=== PATIENT | female | born 1965 | race Caucasian/White ===

== ENCOUNTER → 2018-05-19 | Outpatient (CLI) | payer MEDICARE ==
[~2018-05-19] MED LIST: CITALOPRAM HBR20 MG PO; FOLIC ACID1 MG PO; HYDROXYZINE HCL25 MG PO; HYOSCYAMINE0.125 MG PO; LISINOPRIL10 MG PO; LORAZEPAM0.5 MG PO; METHADONE; NEXIUM40 MG; NYSTATIN SUSPENSION; PLAQUENIL200 MG PO; RITALIN10 MG PO; TRAZODONE HCL50 MG PO; [UNRECOGNIZED DRUG - OTHER]; [UNRECOGNIZED DRUG - OTHER]
--- NOTE | 2018-05-19 20:25 | Diagnostic Imaging Report ---
History: Concussion Comparison studies: None Technique: Axial images were obtained from the skull base to the vertex. Coronal and sagittal reconstructions obtained from the axial data. Dose modulation, iterative reconstruction, and/or weight based adjustment of the mA/kV was utilized to reduce the radiation dose to as low as reasonably achievable. Findings: Scalp/skull: No abnormalities. No fractures, blastic or lytic lesions. Extra-axial spaces: No masses. No fluid collections. Brain sulci: Appropriate for age. Ventricles: Normal in size and configuration. No hydrocephalus. Parenchyma: Focal cortical based hypodensity with associated volume loss of the left posterior cerebellum. No masses, hemorrhage or acute cortical vascular insults. Sellar/suprasellar region: No abnormalities Craniocervical junction: Patent foramen magnum. No Chiari one malformation. Mild atherosclerotic calcifications of the carotid siphons and left vertebral artery. IMPRESSION: No acute abnormalities. Small left posterior cerebellar remote insult . Signed by: DR Isma Brewer M.D. on 05/19/2018 8:22 PM
== END ==
LOC: CT 17:59
PROVIDERS: ATTEND Family Medicine
DX: S06.0X1A Concussion with loss of consciousness of 30 minutes or less, initial encounter (principal)
CPT/HCPCS: 70450

== ENCOUNTER → 2018-12-02 | Day surgery (SDC) | payer MEDICARE ==
[~2018-12-02] MED LIST changes: +ABILIFY5 MG PO; +ACTEMRA80 MG/4 ML SQ; +ALLEGRA OTC PO; +ARICEPT5 MG PO; +ASPIR 8181 MG PO; +BACLOFEN10 MG PO; +FENTANYL CITRATE/PF 100MCG/2 ML INJ ONE; +GABAPENTIN400 MG PO; +GLUCAGON FOR INJ 1 MG VIAL ONE; +GLYCOPYRROLATE INJ 1MG/ 5 ML SYR ONE; +HYDROCODON-ACE1 EAC9 PO; +MELOXICAM15 MG PO; +MIDAZOLAM HCL 2 MG/2 ML VIAL ONE; +MORPHINE SULFAT15 M1 PO; -NEXIUM40 MG; +NEXIUM40 MG PO; +PROPOFOL IV EMULSION 10 MG/ML 50 ML VIAL ONE; +SULFASALAZINE500 MG PO; +TRINTELLIX PO; +V-R WOMEN'S CO1 EACH PO
--- OUTSIDE RECORDS SUMMARY | 2018-12-02 07:05 | XMS REPORT ---
Author Author [facility] Address Unknown Phone Unavailable Support Name Relationship Address Phone NONE, OTHER [address]S [phone] [place], [place] [phone] NOTHER, OTHER PRS [phone] [place], [place] [address] JUDIT FARFAN [place]S [phone] [place], [place] [phone] Care Team Providers Care Coding Manager Name Role Phone Maria D KRISHNAN Unavailable Unavailable Payers Payer Name Policy Type Policy Number Effective Date Expiration Date Problems This patient has no known problems. Allergies, Adverse Reactions, Alerts Allergy Name Allergy Type Status Severity Reaction(s) Onset Date Inactive Date Treating Clinician Comments doxycycline DA Active U 2018-05-07 00:00:00 levofloxacin DA Active U 2018-05-07 00:00:00 Medications This patient has no known medications. Encounters Start Date/Time End Date/Time Encounter Type Admission Type Attending Clinicians Care Facility Care Department Encounter ID 2018-09-17 08:39:00 2018-09-17 08:39:00 Outpatient [facility] [id number] Results Test Description Test Time Test Comments Text Results Atomic Results Result Comments CT BRAIN WO 2018-05-19 20:19:00 [facility] [address] [place] [address] Patient Name: PÉREZ FARFAN MR #: [id number] : 1965 Age/Sex: 52/F Req #: [id number] Adm Physician: Ordered by: SARI KRISHNAN M.D. Report #: [id number] Location: [place] Room/Bed: Procedure: [id number] CT/CT BRAIN WO Exam Date: 05/19/18 Exam Time: 1824 REPORT STATUS: Signed History: Concussion Comparison studies: None Technique: Axial images were obtained from the skull base to the vertex. Coronal and sagittal reconstructions obtained from the axial data. Dose modulation, iterative reconstruction, and/or weight based adjustment of the mA/kV was utilized to reduce the radiation dose to as low as reasonably achievable. Findings: Scalp/skull: No abnormalities. No fractures, blastic or lytic lesions. Extra-axial spaces: No masses. No fluid collections. Brain sulci: Appropriate for age. Ventricles: Normal in size and configuration. No hydrocephalus. Parenchyma: Focal cortical based hypodensity with associated volume loss of the left posterior cerebellum. No masses, hemorrhage or acute cortical vascular insults. Sellar/suprasellar region: No abnormalities Craniocervical junction: Patent foramen magnum. No Chiari one malformation. Mild atherosclerotic calcifications of the carotid siphons and left vertebral artery. IMPRESSION: No acute abnormalities. Small left posterior cerebellar remote insult . Signed by: DR Isma Brewer M.D. on 05/19/2018 8:22 PM Dictated By: ISMA GLOVER MD 21 Transcribed By: IVAN on 05/19/182021 COPY TO: SARI KRISHNAN M.D.
[2018-12-02 09:10] VITALS: BP 123/65
--- NOTE | 2018-12-02 12:26 | Operative Report ---
DATE OF PROCEDURE: 12/02/2018 SURGEON: Parth Marie MD PROCEDURE: Esophagogastroduodenoscopy with esophageal dilatation and colonoscopy with polypectomy. INDICATIONS FOR EGD: Dysphagia, nausea, heartburn. INDICATIONS FOR COLONOSCOPY: Colorectal cancer screening. MEDICATIONS: The patient was done under MAC, please see anesthesiologist's note. PROCEDURE IN DETAIL: With the patient in left lateral decubitus position, flexible fiberoptic Olympus gastroscope was introduced into the esophagus under direct visualization without any difficulty. There was some patchy erythema noted in distal esophagus. There was a mild stricture noted at the GE junction and that was dilated to size 52-[place] Byrd. The scope was then advanced with ease into the stomach and the patient appears to be status post Zhao-en-Y. Anastomosis was intact. There were no marginal ulcers. The efferent loop was patent. The scope was subsequently withdrawn. The patient tolerated procedure well. IMPRESSION: 1. Distal esophagitis, mild. 2. Esophagus dilated to size 52-[place] Byrd. 3. Status post Zhao-en-Y. Anastomosis intact. No evidence of marginal ulcers. Efferent loop patent. PLAN: Increase Nexium to 40 mg one p.o. a.c. b.i.d. If reflux symptoms persist, we will consider a prokinetic agent. PROCEDURE IN DETAIL: The patient was then turned around. After adequate lubrication of the anal canal, a flexible fiberoptic Olympus colonoscope was inserted into the rectum with ease and advanced all the way to the distal transverse colon. It was not advanced any further due to the presence of a large amount of retained fecal material. The scope was then withdrawn slowly and no obvious obstructing or constricting lesions were noted in the descending colon. A minute polyp was hot biopsied from the sigmoid colon. The rectum grossly appeared to be within normal limits. The scope was then retroflexed into the distal rectum and small internal hemorrhoids were noted, none of which was actively bleeding. The scope was then straightened out, it was subsequently withdrawn. The patient tolerated procedure well. IMPRESSION: 1. Colonoscopy to distal transverse colon. Did not advance any further due to poor prep. 2. Sigmoid colon polyp, hot biopsied. 3. Internal hemorrhoids, none actively bleeding. PLAN: Follow up histology. We will need repeat colonoscopy after a better prep. MD EVELIA Wheeler/FERNL /[id number] cc: Erik Gilliam DO
== END | disposition home or self-care (01) ==
LOC: ENDO 07:03
PROVIDERS: ATTEND Internal Medicine Gastroenterology
DX: Z12.11 Encounter for screening for malignant neoplasm of colon (principal); K63.5 Polyp of colon; K22.2 Esophageal obstruction; K20.9 Esophagitis, unspecified; K30 Functional dyspepsia; Z98.84 Bariatric surgery status; K21.9 Gastro-esophageal reflux disease without esophagitis; K59.00 Constipation, unspecified; K64.8 Other hemorrhoids; M06.9 Rheumatoid arthritis, unspecified; M32.9 Systemic lupus erythematosus, unspecified; L40.50 Arthropathic psoriasis, unspecified; M79.7 Fibromyalgia; I69.392 Facial weakness following cerebral infarction; I10 Essential (primary) hypertension; R00.1 Bradycardia, unspecified; F32.9 Major depressive disorder, single episode, unspecified; Z88.1 Allergy status to other antibiotic agents; Z79.82 Long term (current) use of aspirin; Z68.33 Body mass index [BMI] 33.0-33.9, adult; Z87.891 Personal history of nicotine dependence
CPT/HCPCS: 43239; 43450; 45384; 88305; 93005; J1610; J2250; J2704; J3010; J3490; 45378

== ENCOUNTER 2018-12-27 17:20 | Emergency (ER) | payer MEDICARE ==
[~2018-12-27] VITALS: Ht 167.6 cm; Wt 71.7 kg
[~2018-12-27 17:20] MED LIST changes: -FENTANYL CITRATE/PF 100MCG/2 ML INJ ONE; -GLUCAGON FOR INJ 1 MG VIAL ONE; -GLYCOPYRROLATE INJ 1MG/ 5 ML SYR ONE; -MIDAZOLAM HCL 2 MG/2 ML VIAL ONE; -PROPOFOL IV EMULSION 10 MG/ML 50 ML VIAL ONE
[2018-12-27 20:02] LABS: BASOPHILS % 0.4 % (0.0-1.0); EOSINOPHILS # (AUTO) 0.1 (0.0-0.4); EOSINOPHILS % 0.7 % (0.0-6.0); HEMATOCRIT 47.7 % (34.2-44.1); HEMOGLOBIN 14.6 g/dL (12.0-16.0); LYMPHOCYTES # (AUTO) 2.2 (1.0-3.2); LYMPHOCYTES % 31.2 % (18.0-39.1); MEAN CORPUSCULAR HEMOGLOBIN 27.9 pg (28-32); MEAN CORPUSCULAR HGB CONC 30.6 g/dL (31-35); MEAN CORPUSCULAR VOLUME 91.2 fL (81-99); MONOCYTES # (AUTO) 0.5 (0.2-0.8); MONOCYTES % 7.4 % (4.4-11.3); NEUTROPHILS # (AUTO) 4.3 (2.1-6.9); PLATELET COUNT 244 x10e3/uL (140-360); RED BLOOD COUNT 5.23 x10e6/uL (3.6-5.1); RED CELL DISTRIBUTION WIDTH 11.9 % (11.7-14.4)
[2018-12-27 20:18] LABS: ALANINE AMINOTRANSFERASE 30 IU/L (0-55); ALBUMIN 4.5 g/dL (3.5-5.0); ALBUMIN/GLOBULIN RATIO 1.5 (0.8-2.0); ALKALINE PHOSPHATASE 87 IU/L (40-150); ANION GAP 17.1 mmol/L (8-16); BLOOD UREA NITROGEN 55 mg/dL (7-26); BUN/CREATININE RATIO 33 (6-25); CARBON DIOXIDE 22 mmol/L (22-29); CHLORIDE 102 mmol/L (98-107); CREATINE KINASE 50 IU/L (29-168); CREATININE, SERUM 1.66 mg/dL (0.57-1.11); EST GLOMERULAR FILTRATION RATE 32 ML/MIN (60-); GLUCOSE 111 mg/dL (74-118); SODIUM 136 mmol/L (136-145)
[2018-12-27 20:20] LABS: POTASSIUM 5.1 mmol/L (3.5-5.1)
[2018-12-27 20:40] LABS: BILIRUBIN,URINE SMALL (NEGATIVE); CLARITY,URINE CLOUDY (CLEAR); COLOR,URINE YELLOW (YELLOW); KETONES,URINE TRACE (NEGATIVE); LEUKOCYTE ESTERASE ,URINE LARGE (NEGATIVE); NITRITE,URINE NEGATIVE (NEGATIVE); PROTEIN,URINE DIPSTICK TRACE (NEGATIVE); URINE UROBILINOGEN 0.2 mg/dL (0.2 - 1)
[2018-12-27 20:55] LABS: AMORPHOUS SEDIMENT,URINE MODERATE (FEW); BACTERIA,URINE MANY /HPF; EPITHELIAL CELLS,URINE FEW /LPF; RBC,URINE 0-5 /HPF (0-5)
--- NOTE | 2018-12-27 21:36 | Diagnostic Imaging Report ---
EXAM: CHEST SINGLE (PORTABLE) DATE: 12/27/2018 7:30 PM INDICATION: ^GENERALIZED WEAKNESSS ^[id number] ^2049 ^Y COMPARISON: None FINDINGS: Lines and tubes: None Heart size normal. No focal pulmonary opacity, pleural effusion or pneumothorax. Upper abdomen unremarkable. No acute bony abnormality. IMPRESSION: No evidence for acute disease. Signed by: Dr. Davi De Santiago M.D. on 12/27/2018 9:33 PM
[2018-12-27] MEDS ORDERED: SODIUM CHLORIDE 0.9% 1000ML 1,000 ML IV ONE (22:30)
[2018-12-27] MEDS ORDERED: CEFTRIAXONE SOD 1 GM/NS 50 ML 50 ML IV ONE (22:30)
[2018-12-27 23:55] VITALS: BP 111/61
== END 2018-12-28 00:02 | disposition home or self-care (01) ==
LOC: ER 17:20
DX: R30.0 Dysuria (principal); E86.0 Dehydration; R53.1 Weakness; N30.90 Cystitis, unspecified without hematuria; M32.9 Systemic lupus erythematosus, unspecified; M79.7 Fibromyalgia; Z98.84 Bariatric surgery status; Z87.891 Personal history of nicotine dependence
CPT/HCPCS: 36415; 71045; 80053; 81001; 82550; 82553; 84484; 85025; 93005; 99283; J0696; J7030

== ENCOUNTER → 2019-03-18 | Outpatient (CLI) | payer MEDICARE ==
--- NOTE | 2019-03-18 08:44 | Diagnostic Imaging Report ---
EXAM: US ABDOMEN COMPLETE DATE: 03/18/2019 7:53 AM INDICATION: Elevated liver enzymes COMPARISON: None TECHNIQUE: Transverse and longitudinal rodgers scale and color doppler sonographic images of the upper abdomen were obtained. FINDINGS: There is no evidence of fluid or masses seen in the area of clinical concern in the right lower quadrant. LIVER 15.7 cm in the right midclavicular line. Normal echogenicity of the liver with normal contour, no masses. SPLEEN 10.0 cm in maximum diameter. Normal echogenicity, no masses. GALLBLADDER Status post cholecystectomy BILE DUCTS No intra nor extra-hepatic biliary dilation. Common bile duct measures 12 mm PANCREAS: Not visualized due to overlying bowel gas. RIGHT KIDNEY: 10.1 cm Echogenicity: Normal Collecting System: No hydronephrosis Stones: None Cyst/Mass: None LEFT KIDNEY: 9.9 cm Echogenicity: Normal Collecting System: No hydronephrosis Stones: None Cyst/Mass: None VESSELS: Aorta: Visualized portions are within normal size limits Inferior Vena Cava: Visualized portions are normal Main Portal Vein: 0.9 cm, normal size with hepatopetal flow. FREE FLUID: None IMPRESSION: Status post cholecystectomy. Common bile duct measures up to 12 mm, which could be due to postoperative reservoir effect. Signed by: Marlee Brink MD on 03/18/2019 8:41 AM
== END ==
LOC: US 07:45
PROVIDERS: ATTEND Internal Medicine Gastroenterology
DX: R74.8 Abnormal levels of other serum enzymes (principal)
CPT/HCPCS: 76700

== ENCOUNTER → 2022-05-29 | Outpatient (CLI) | payer MEDICARE ==
[~2022-05-29] MED LIST changes: +BUSPIRONE HCL7.5 MG PO; +CALCIUM CARBON500 MG PO; +CYCLOBENZAPRINE10 MG PO; +HCTZ PO; +HYDROXYCHLOROQ200 MG PO; +HYDROXYZINE HCL10 MG PO; +KLONOPIN0.5 MG PO; +LORATADINE10 MG PO; +METOPROLOL SUCC25 MG PO; +NAMENDA10 MG PO; +OLUMIANT2 MG PO; +PERCOCET 10-321 EACH PO; +RIVASTIGMINE1.5 MG PO; +SERTRALINE HCL200 MG PO; +TRUE BIOTIC PO; +WELLBUTRIN XL150 MG PO
== END ==
LOC: RAD 08:24
PROVIDERS: ATTEND Family Medicine
DX: M79.89 Other specified soft tissue disorders (principal); R60.9 Edema, unspecified
CPT/HCPCS: 76882; 93971

== ENCOUNTER → 2022-06-06 | Outpatient (CLI) | payer MEDICARE | LOC: MRI 09:21 | PROVIDERS: ATTEND Family Medicine | DX: M79.89 Other specified soft tissue disorders (principal); M06.041 Rheumatoid arthritis without rheumatoid factor, right hand; Z79.899 Other long term (current) drug therapy ==

== ENCOUNTER → 2024-04-29 | Outpatient (REF) | payer MEDICARE ==
[~2024-04-29] MED LIST changes: +ARAVA20 MG PO; +CELEBREX100 MG PO; +CICLOPIROX15 GM TOP; +CLOBETASOL1 EA/15 GM PO; +D3-5000125 MCG PO; +DESONIDE15 GM TOP; +FLUCONAZOLE100 MG PO; +HUMIRA(CF)40 MG/0.4 SC; +IOPAMIDOL 370 MG/ML 100 ML INFUS..BTL INJ ONE; +LATUDA40 MG PO; +LOSARTAN POTASS25 MG PO; +MIRTAZAPINE15 MG PO; +MUSHROOM COMPLEX PO; +NYSTATIN-TRIAMC15 GM TOP; +QUETIAPINE FUM100 MG PO; +TRIAMCINOLONE A15 G3 TOP; +TRINTELLIX20 MG PO; +VENTOLIN HFA18 GM INH
[2024-04-29 10:38] LABS: CREATININE, SERUM 0.8 mg/dL (0.57-1.11)
== END ==
LOC: CT 09:45
PROVIDERS: ATTEND Family Medicine
DX: R06.02 Shortness of breath (principal); R93.89 Abnormal findings on diagnostic imaging of other specified body structures
CPT/HCPCS: 36415; 71260; 82565; 84520; Q9967

== ENCOUNTER → 2024-05-23 | Day surgery (SDC) | payer MEDICARE ==
[~2024-05-23] MED LIST changes: +GLUCAGON FOR INJ 1 MG VIAL ONE; -IOPAMIDOL 370 MG/ML 100 ML INFUS..BTL INJ ONE; +LIDOCAINE HCL 2% LOCAL INJ 5 ML SDV VIAL INJ ONE; +METOCLOPRAMIDE HCL 10 MG/2ML VIAL ONE; +MONTELUKAST SOD10 MG PO; +PROPOFOL IV EMULSION 50 ML IV ONE
[2024-05-23] MEDS: LACTATED RINGER'S 1,000 ML ONE (06:26)
[2024-05-23 08:00] VITALS: TEMP 97
[2024-05-23 08:30] VITALS: BP 110/91; PULSE 72; RESP 18; O2SAT 95
== END | disposition home or self-care (01) ==
LOC: OR 05:24
PROVIDERS: ATTEND Internal Medicine Gastroenterology
DX: K22.2 Esophageal obstruction (principal); K58.9 Irritable bowel syndrome, unspecified; K63.89 Other specified diseases of intestine; Z98.0 Intestinal bypass and anastomosis status; K59.09 Other constipation; K64.8 Other hemorrhoids; I10 Essential (primary) hypertension; I44.4 Left anterior fascicular block; G47.33 Obstructive sleep apnea (adult) (pediatric); E78.5 Hyperlipidemia, unspecified; F41.9 Anxiety disorder, unspecified; F32.A Depression, unspecified; R41.3 Other amnesia; M32.9 Systemic lupus erythematosus, unspecified; Z98.84 Bariatric surgery status; Z86.73 Personal history of transient ischemic attack (TIA), and cerebral infarction without residual deficits; Z79.899 Other long term (current) drug therapy; Z79.82 Long term (current) use of aspirin
CPT/HCPCS: 43235; 43450; 45378; J1610; J2003; J2470; J2704; J2765; J7121

== ENCOUNTER 2024-05-26 17:06 | Inpatient (IN) | payer MEDICARE ==
[~2024-05-26] VITALS: Ht 167.6 cm; Wt 91.4 kg
[~2024-05-26 17:06] MED LIST changes: -GLUCAGON FOR INJ 1 MG VIAL ONE; -LIDOCAINE HCL 2% LOCAL INJ 5 ML SDV VIAL INJ ONE; -METOCLOPRAMIDE HCL 10 MG/2ML VIAL ONE; -PROPOFOL IV EMULSION 50 ML IV ONE
[2024-05-26 17:16] VITALS: TEMP 97.5
[2024-05-26 17:39] LABS: BASOPHILS # (AUTO) 0.1 (0.0-0.1); BASOPHILS % 0.3 % (0.0-1.0); EOSINOPHILS % 0.1 % (0.0-6.0); HEMOGLOBIN 12.8 g/dL (12.0-16.0); LYMPHOCYTES # (AUTO) 0.9 (1.0-3.2); MEAN CORPUSCULAR HEMOGLOBIN 26.8 pg (28-32); MEAN CORPUSCULAR HGB CONC 30.5 g/dL (31-35); MEAN CORPUSCULAR VOLUME 87.9 fL (81-99); MONOCYTES # (AUTO) 1.9 (0.2-0.8); MONOCYTES % 10.3 % (4.4-11.3); NEUTROPHILS # (AUTO) 15.2 (2.1-6.9); NEUTROPHILS % 83.3 % (38.7-80.0); PLATELET COUNT 311 x10e3/uL (140-360); RED BLOOD COUNT 4.78 x10e6/uL (3.6-5.1); RED CELL DISTRIBUTION WIDTH 13.7 % (11.7-14.4); WHITE BLOOD COUNT 18.27 x10e3/uL (4.8-10.8)
[2024-05-26 17:59] LABS: ALBUMIN 3.4 g/dL (3.5-5.0); ALBUMIN/GLOBULIN RATIO 0.8 (0.8-2.0); ANION GAP 25.4 mmol/L (8-16); BILIRUBIN,TOTAL 0.5 mg/dL (0.2-1.2); CALCIUM 9.4 mg/dL (8.4-10.2); CREATININE, SERUM 8.06 mg/dL (0.57-1.11); TOTAL PROTEIN 7.8 g/dL (6.5-8.1)
[2024-05-26 18:00] LABS: POTASSIUM 5.4 mmol/L (3.5-5.1)
[2024-05-26 18:28] LABS: TROPONIN I 0.051 ng/mL (0-0.300)
[2024-05-26 18:33] VITALS: PULSE 93; RESP 18
[2024-05-26 19:02] LABS: STREPTOCOCCUS GRP A ANTIGEN NEGATIVE (NEGATIVE)
[2024-05-26 19:11] LABS: CORONAVIRUS COVID-19 AG NEGATIVE (NEGATIVE); INFLUENZA A AG NEGATIVE (NEGATIVE); INFLUENZA B AG NEGATIVE (NEGATIVE)
[2024-05-26 19:30] VITALS: PULSE 94; RESP 20; O2SAT 97
[2024-05-26] MEDS: SODIUM BICARBONATE 8.4% INJ 50 ML SYR IV STA (19:30)
[2024-05-26] MEDS: SODIUM CHLORIDE 0.9% 1000ML 1,000 ML IV STA (19:32)
[2024-05-26] MEDS: CALCIUM GLUC 1 G/50 ML NACL 50 ML IV ONE (19:34)
[2024-05-26] MEDS: DEXTROSE 50% SYRINGE 50 ML IV ONE (19:45)
[2024-05-26] MEDS: INSULIN REGULAR, HUMAN 100 UNIT/1 ML IV ONE (19:47)
[2024-05-26] MEDS: FUROSEMIDE INJ 10 MG/ML 4 ML VIAL IV ONE (19:52)
[2024-05-26 20:03] LABS: CLARITY,URINE CLEAR (CLEAR); COLOR,URINE YELLOW (YELLOW); PH,URINE 5 (5 - 7)
[2024-05-26 20:04] LABS: BILIRUBIN,URINE SMALL (NEGATIVE); GLUCOSE, URINE NEGATIVE (NEGATIVE); KETONES,URINE TRACE (NEGATIVE); LEUKOCYTE ESTERASE ,URINE NEGATIVE (NEGATIVE); NITRITE,URINE NEGATIVE (NEGATIVE); PROTEIN,URINE DIPSTICK 2+ (NEGATIVE); URINE UROBILINOGEN 0.2 mg/dL (0.2 - 1)
[2024-05-26 20:09] LABS: AMPHETAMINES SCREEN,URINE NEGATIVE (NEGATIVE); OPIATES SCREEN,URINE POSITIVE (NEGATIVE); PHENCYCLIDINE SCREEN,URINE NEGATIVE (NEGATIVE)
[2024-05-26 20:10] LABS: BENZODIAZEPINES SCREEN,URINE POSITIVE (NEGATIVE); CANNABINOIDS SCREEN,URINE NEGATIVE (NEGATIVE); COCAINE SCREEN,URINE NEGATIVE (NEGATIVE); METHADONE SCREEN, URINE NEGATIVE (NEGATIVE)
[2024-05-26 20:16] LABS: BACTERIA,URINE FEW /HPF; EPITHELIAL CELLS,URINE FEW /LPF; WBC,URINE (MAN) 0-5 /HPF (0-5)
[2024-05-26] MEDS: SODIUM CHLORIDE 0.9% 1000ML 1,000 ML IV SCH (20:34)
[2024-05-26 21:18] VITALS: BP 120/94; PULSE 103; RESP 16; TEMP 97.2; O2SAT 95
[2024-05-26 23:00] VITALS: BP 120/94; PULSE 103; RESP 16; TEMP 97.2; O2SAT 95
[2024-05-27] VITALS (10 sets, daily range): BP systolic 75–126; BP diastolic 48–79; PULSE 78–108; RESP 16–19; TEMP 97.5–97.9; O2SAT 92–98
[2024-05-27 05:30] LABS: BASOPHILS # (AUTO) 0.1 (0.0-0.1); BASOPHILS % 0.6 % (0.0-1.0); EOSINOPHILS % 0.1 % (0.0-6.0); HEMATOCRIT 34.1 % (34.2-44.1); HEMOGLOBIN 11.2 g/dL (12.0-16.0); LYMPHOCYTES # (AUTO) 0.9 (1.0-3.2); LYMPHOCYTES % 5.8 % (18.0-39.1); MEAN CORPUSCULAR HEMOGLOBIN 26.8 pg (28-32); MEAN CORPUSCULAR HGB CONC 32.8 g/dL (31-35); MEAN CORPUSCULAR VOLUME 81.6 fL (81-99); MONOCYTES # (AUTO) 2.1 (0.2-0.8); MONOCYTES % 13.5 % (4.4-11.3); NEUTROPHILS % 78.9 % (38.7-80.0); PLATELET COUNT 296 x10e3/uL (140-360); RED BLOOD COUNT 4.18 x10e6/uL (3.6-5.1); RED CELL DISTRIBUTION WIDTH 13.5 % (11.7-14.4); WHITE BLOOD COUNT 15.16 x10e3/uL (4.8-10.8)
[2024-05-27 06:08] LABS: ALBUMIN/GLOBULIN RATIO 0.8 (0.8-2.0); ANION GAP 23.8 mmol/L (8-16); BILIRUBIN,TOTAL 0.5 mg/dL (0.2-1.2); CALCIUM 8.8 mg/dL (8.4-10.2); CREATININE, SERUM 6.57 mg/dL (0.57-1.11); POTASSIUM 4.8 mmol/L (3.5-5.1); TOTAL PROTEIN 6.8 g/dL (6.5-8.1)
[2024-05-27 06:14] LABS: TROPONIN I 0.03 ng/mL (0-0.300)
[2024-05-27] MEDS ORDERED: ALBUTEROL/IPRATROPIUM 3 ML NEB NEB PRN (12:15)
[2024-05-27] MEDS ORDERED: DOCUSATE SODIUM 100 MG CAP PO PRN (12:15)
[2024-05-27] MEDS ORDERED: GABAPENTIN 400 MG CAP PO SCH (15:00)
[2024-05-27] MEDS: GABAPENTIN 300 MG CAP PO SCH (15:48)
[2024-05-27] MEDS: MEMANTINE 10 MG TAB PO SCH (15:49)
[2024-05-27] MEDS: CYCLOBENZAPRINE HCL 10 MG TAB PO SCH (15:49)
[2024-05-27] MEDS: PANTOPRAZOLE SOD 40 MG TABEC PO SCH (15:49)
[2024-05-27] MEDS ORDERED: CELECOXIB 100 MG CAP PO SCH (17:00)
[2024-05-27 18:03] LABS: TROPONIN I 0.026 ng/mL (0-0.300)
[2024-05-27 19:20] LABS: CREATININE,URINE RANDOM 107.42 mg/dL (47-110)
[2024-05-27 19:21] LABS: PROTEIN/CREATININE RATIO,URINE 0.23
[2024-05-27] MEDS: MIRTAZAPINE 15 MG TAB PO SCH (21:00)
[2024-05-27] MEDS: QUETIAPINE FUMARATE 25 MG TAB PO SCH (21:00)
[2024-05-27] MEDS: SODIUM BICARBONATE 8.4% VIAL 50 ML in SODIUM CHLORIDE 0.45% 1,000 ML IV ONE (22:59)
[2024-05-28] VITALS (10 sets, daily range): BP systolic 131–174; BP diastolic 74–97; PULSE 68–91; RESP 16–20; TEMP 97.4–99.5; O2SAT 94–100
[2024-05-28] MEDS: MEMANTINE 10 MG TAB PO SCH (05:00)
[2024-05-28 06:09] LABS: BASOPHILS # (AUTO) 0.1 (0.0-0.1); BASOPHILS % 0.6 % (0.0-1.0); EOSINOPHILS # (AUTO) 0.7 (0.0-0.4); EOSINOPHILS % 5.1 % (0.0-6.0); HEMOGLOBIN 10.2 g/dL (12.0-16.0); LYMPHOCYTES % 6.7 % (18.0-39.1); MEAN CORPUSCULAR HEMOGLOBIN 26.5 pg (28-32); MEAN CORPUSCULAR HGB CONC 32.9 g/dL (31-35); MEAN CORPUSCULAR VOLUME 80.5 fL (81-99); MONOCYTES # (AUTO) 1.5 (0.2-0.8); MONOCYTES % 10.5 % (4.4-11.3); NEUTROPHILS # (AUTO) 10.9 (2.1-6.9); NEUTROPHILS % 76.1 % (38.7-80.0); PLATELET COUNT 283 x10e3/uL (140-360); RED BLOOD COUNT 3.85 x10e6/uL (3.6-5.1); RED CELL DISTRIBUTION WIDTH 13.7 % (11.7-14.4); WHITE BLOOD COUNT 14.39 x10e3/uL (4.8-10.8)
[2024-05-28 06:26] LABS: ANION GAP 16.6 mmol/L (8-16); CALCIUM 8.5 mg/dL (8.4-10.2); CREATININE, SERUM 2.62 mg/dL (0.57-1.11); POTASSIUM 3.6 mmol/L (3.5-5.1)
[2024-05-28] MEDS: LACTATED RINGER'S 1,000 ML INJ SCH (06:30)
[2024-05-28] MEDS: NALOXONE HCL INJ 0.4 MG/ML AMP IV ONE (08:35)
[2024-05-28] MEDS: ASPIRIN 81 MG CHEW TAB PO SCH (11:11)
[2024-05-28] MEDS: LORATADINE 10 MG TAB PO SCH (11:12)
[2024-05-28] MEDS: SENNOSIDES 8.6 MG TAB PO SCH (11:23)
[2024-05-28] MEDS: SODIUM CHLORIDE 0.9% 250ML 250 ML ONE (12:57)
[2024-05-28] MEDS: OXYCODONE/ACETAMINOPHEN 5-325 1 EACH TABLET PO PRN (13:38)
[2024-05-28] MEDS: SODIUM BICARBONATE 650 MG TAB PO SCH (22:11)
[2024-05-28] MEDS: ONDANSETRON HCL INJ 2MG/ML 2ML 2 MG/ML VIAL IV PRN (22:19)
[2024-05-29] VITALS (10 sets, daily range): BP systolic 131–182; BP diastolic 60–91; PULSE 59–94; RESP 17–22; TEMP 97.5–98.8; O2SAT 93–99
[2024-05-29 05:52] LABS: BASOPHILS # (AUTO) 0.1 (0.0-0.1); BASOPHILS % 0.4 % (0.0-1.0); EOSINOPHILS # (AUTO) 0.5 (0.0-0.4); EOSINOPHILS % 4.3 % (0.0-6.0); HEMATOCRIT 30.2 % (34.2-44.1); HEMOGLOBIN 9.9 g/dL (12.0-16.0); LYMPHOCYTES # (AUTO) 1.1 (1.0-3.2); LYMPHOCYTES % 9.9 % (18.0-39.1); MEAN CORPUSCULAR HEMOGLOBIN 26.3 pg (28-32); MEAN CORPUSCULAR HGB CONC 32.8 g/dL (31-35); MEAN CORPUSCULAR VOLUME 80.3 fL (81-99); MONOCYTES # (AUTO) 1.2 (0.2-0.8); MONOCYTES % 10.7 % (4.4-11.3); NEUTROPHILS # (AUTO) 8.1 (2.1-6.9); NEUTROPHILS % 71.1 % (38.7-80.0); PLATELET COUNT 308 x10e3/uL (140-360); RED BLOOD COUNT 3.76 x10e6/uL (3.6-5.1); RED CELL DISTRIBUTION WIDTH 14.2 % (11.7-14.4); WHITE BLOOD COUNT 11.42 x10e3/uL (4.8-10.8)
[2024-05-29 06:23] LABS: ANION GAP 14.8 mmol/L (8-16); CALCIUM 8.6 mg/dL (8.4-10.2); CREATININE, SERUM 0.81 mg/dL (0.57-1.11); MAGNESIUM 2.1 MG/DL (1.3-2.1); POTASSIUM 3.8 mmol/L (3.5-5.1); URIC ACID 6.7 mg/dL (2.6-8.0)
[2024-05-29 10:46] LABS: ABG HCO3 17 mmol/L (22-26); ABG PCO2 36 mmHg (35-45); ABG PO2 32 mmHg (80-105); ABG TCO2 18
[2024-05-29 13:09] LABS: COMPLEMENT C3 145 mg/dL (82-167)
[2024-05-29] MEDS ORDERED: NYSTATIN SUSPENSION 5 ML UDC PO SCH (16:00)
[2024-05-29] MEDS: MAALOX/LIDOCAINE/BENADRYL/NYST 30 ML BTL PO ONE (16:13)
[2024-05-29 21:36] LABS: COMPLEMENT C4 41 mg/dL (12-38)
[2024-05-30] VITALS (9 sets, daily range): BP systolic 136–183; BP diastolic 74–110; PULSE 63–90; RESP 17–20; TEMP 97.1–98.6; O2SAT 95–99
[2024-05-30] MEDS: ACETAMINOPHEN 325 MG TAB PO PRN (02:54)
[2024-05-30 06:38] LABS: ABG HCO3 25 mmol/L (22-26); ABG PCO2 43 mmHg (35-45); ABG PH 7.37 (7.35-7.45); ABG PO2 110 mmHg (80-105); ABG TCO2 26
[2024-05-30] MEDS ORDERED: HYDRALAZINE HCL 25 MG TAB PO SCH (07:15)
[2024-05-30 07:50] LABS: BASOPHILS # (AUTO) 0.1 (0.0-0.1); BASOPHILS % 0.4 % (0.0-1.0); EOSINOPHILS # (AUTO) 0.1 (0.0-0.4); EOSINOPHILS % 1.1 % (0.0-6.0); HEMATOCRIT 40.4 % (34.2-44.1); HEMOGLOBIN 11.6 g/dL (12.0-16.0); LYMPHOCYTES # (AUTO) 1.1 (1.0-3.2); MEAN CORPUSCULAR HEMOGLOBIN 26.2 pg (28-32); MEAN CORPUSCULAR HGB CONC 28.7 g/dL (31-35); MEAN CORPUSCULAR VOLUME 91.2 fL (81-99); MONOCYTES # (AUTO) 1.2 (0.2-0.8); MONOCYTES % 9.9 % (4.4-11.3); NEUTROPHILS # (AUTO) 8.9 (2.1-6.9); NEUTROPHILS % 71.7 % (38.7-80.0); PLATELET COUNT 287 x10e3/uL (140-360); RED BLOOD COUNT 4.43 x10e6/uL (3.6-5.1); RED CELL DISTRIBUTION WIDTH 14.9 % (11.7-14.4); WHITE BLOOD COUNT 12.38 x10e3/uL (4.8-10.8)
[2024-05-30 08:19] LABS: ANION GAP 19.1 mmol/L (8-16); CREATININE, SERUM 0.71 mg/dL (0.57-1.11); POTASSIUM 4.1 mmol/L (3.5-5.1)
[2024-05-30] MEDS ORDERED: HYDRALAZINE HCL 20 MG/ML VIAL IV PRN (08:30)
[2024-05-30] MEDS ORDERED: CLONAZEPAM 0.5 MG TAB PO PRN (08:30)
[2024-05-30] MEDS ORDERED: MAGNESIUM HYDROXIDE 30 ML UDC PO PRN (08:30)
[2024-05-30 08:33] LABS: MAGNESIUM 1.6 MG/DL (1.3-2.1)
[2024-05-30] MEDS: SENNOSIDES 8.6 MG TAB PO SCH (09:00)
[2024-05-30] MEDS: MORPHINE SULFATE ER 15 MG TAB PO SCH (09:09)
[2024-05-30] MEDS: HYDROXYCHLOROQUINE SULFATE 200 MG TAB PO SCH (09:09)
[2024-05-30] MEDS ORDERED: RIVASTIGMINE TARTRATE 1.5 MG CAP PO SCH (10:00)
[2024-05-30] MEDS ORDERED: SODIUM PHOSPHATE IN 0.9 % NACL 15 MMOL in SODIUM CHLORIDE 0.9% 250ML 250 ML IV ONE (11:30)
[2024-05-30] MEDS: MAGNESIUM SULFATE 2GM/50ML 50 ML IV ONE (11:30)
[2024-05-30] MEDS: LACTATED RINGER'S 1,000 ML INJ ONE (11:30)
[2024-05-30 11:42] LABS: BAND NEUTROPHILS % (MANUAL) 1 %; EOSINOPHILS % (MANUAL) 3 % (0-7); LYMPHOCYTES % (MANUAL) 11 % (19-48); MONOCYTES % (MANUAL) 7 % (3.4-9.0); NEUTROPHILS % (MANUAL) 78 % (40-74); PLATELET ESTIMATE ADEQUATE; PLATELET MORPHOLOGY COMMENT NORMAL; RBC MORPHOLOGY COMMENT NORMAL
[2024-05-30] MEDS: SODIUM PHOSPHATE 15 MMOL in SODIUM CHLORIDE 0.9% 250ML 250 ML IV ONE (12:42)
[2024-05-30] MEDS: RIVASTIGMINE TARTRATE 1.5 MG CAP PO SCH (12:44)
[2024-05-30] MEDS: GABAPENTIN 100 MG CAP PO SCH (15:02)
[2024-05-30 15:11] LABS: cANCA TITER <1:20 titer (Neg:<1:20)
[2024-05-30] MEDS: ENOXAPARIN 30 MG/0.3 ML SYR SC SCH (17:46)
[2024-05-30] MEDS: CYCLOBENZAPRINE HCL 10 MG TAB PO PRN (17:47)
[2024-05-30 20:08] LABS: ATYPICAL pANCA TITER <1:20 titer (Neg:<1:20); pANCA TITER <1:20 titer (Neg:<1:20)
[2024-05-30] MEDS: MONTELUKAST SODIUM 10 MG TAB PO SCH (21:10)
[2024-05-30] MEDS: METOPROLOL SUCCINATE 25 MG TAB XL PO SCH (21:11)
[2024-05-31] VITALS (10 sets, daily range): BP systolic 128–155; BP diastolic 84–99; PULSE 76–102; RESP 17–20; TEMP 97.5–98.4; O2SAT 94–98
[2024-05-31 05:42] LABS: BASOPHILS # (AUTO) 0.1 (0.0-0.1); BASOPHILS % 0.9 % (0.0-1.0); EOSINOPHILS # (AUTO) 0.2 (0.0-0.4); EOSINOPHILS % 1.6 % (0.0-6.0); HEMATOCRIT 33.8 % (34.2-44.1); HEMOGLOBIN 10.9 g/dL (12.0-16.0); LYMPHOCYTES # (AUTO) 1.7 (1.0-3.2); LYMPHOCYTES % 11.4 % (18.0-39.1); MEAN CORPUSCULAR HEMOGLOBIN 26.5 pg (28-32); MEAN CORPUSCULAR HGB CONC 32.2 g/dL (31-35); MEAN CORPUSCULAR VOLUME 82.2 fL (81-99); MONOCYTES # (AUTO) 1.4 (0.2-0.8); MONOCYTES % 9.7 % (4.4-11.3); PLATELET COUNT 332 x10e3/uL (140-360); RED BLOOD COUNT 4.11 x10e6/uL (3.6-5.1); RED CELL DISTRIBUTION WIDTH 14.5 % (11.7-14.4); WHITE BLOOD COUNT 14.51 x10e3/uL (4.8-10.8)
[2024-05-31 06:16] LABS: MAGNESIUM 1.6 MG/DL (1.3-2.1); PHOSPHORUS 2.2 MG/DL (2.3-4.7)
[2024-05-31 06:17] LABS: ANION GAP 16.5 mmol/L (8-16); CALCIUM 8.8 mg/dL (8.4-10.2); CREATININE, SERUM 0.68 mg/dL (0.57-1.11); POTASSIUM 3.5 mmol/L (3.5-5.1)
[2024-05-31 08:24] LABS: LYMPHOCYTES % (MANUAL) 18 % (19-48); MONOCYTES % (MANUAL) 12 % (3.4-9.0); NEUTROPHILS % (MANUAL) 70 % (40-74); PLATELET ESTIMATE ADEQUATE; PLATELET MORPHOLOGY COMMENT NORMAL; RBC MORPHOLOGY COMMENT NORMAL
[2024-05-31] MEDS: OXYCODONE/ACETAMINOPHEN 5-325 1 EACH TABLET PO PRN (13:29)
[2024-05-31 16:32] LABS: ANTI DNA DS ANTIBODY 4 IU/mL (0-9)
[2024-05-31] MEDS ORDERED: SODIUM PHOSPHATE IN 0.9 % NACL 15 MMOL in SODIUM CHLORIDE 0.9% 250ML 250 ML IV ONE (17:15)
[2024-05-31] MEDS: MAGNESIUM SULFATE 2GM/50ML 50 ML IV ONE (20:39)
[2024-05-31] MEDS: SODIUM PHOSPHATE 15 MMOL in SODIUM CHLORIDE 0.9% 250ML 250 ML IV ONE (22:00)
[2024-06-01] VITALS (10 sets, daily range): BP systolic 107–126; BP diastolic 62–89; PULSE 74–91; RESP 18–20; TEMP 97.5–98.3; O2SAT 93–100
[2024-06-01 05:51] LABS: BASOPHILS # (AUTO) 0.1 (0.0-0.1); BASOPHILS % 0.9 % (0.0-1.0); EOSINOPHILS # (AUTO) 0.6 (0.0-0.4); EOSINOPHILS % 4.3 % (0.0-6.0); HEMOGLOBIN 10.6 g/dL (12.0-16.0); LYMPHOCYTES # (AUTO) 1.9 (1.0-3.2); MEAN CORPUSCULAR HEMOGLOBIN 26.3 pg (28-32); MEAN CORPUSCULAR HGB CONC 31.2 g/dL (31-35); MEAN CORPUSCULAR VOLUME 84.4 fL (81-99); MONOCYTES # (AUTO) 1.2 (0.2-0.8); MONOCYTES % 8.5 % (4.4-11.3); NEUTROPHILS # (AUTO) 9.5 (2.1-6.9); NEUTROPHILS % 65.9 % (38.7-80.0); PLATELET COUNT 275 x10e3/uL (140-360); RED BLOOD COUNT 4.03 x10e6/uL (3.6-5.1); RED CELL DISTRIBUTION WIDTH 14.5 % (11.7-14.4); WHITE BLOOD COUNT 14.45 x10e3/uL (4.8-10.8)
[2024-06-01 06:33] LABS: ANION GAP 15.9 mmol/L (8-16); CALCIUM 8.5 mg/dL (8.4-10.2); CREATININE, SERUM 0.7 mg/dL (0.57-1.11); POTASSIUM 3.9 mmol/L (3.5-5.1)
[2024-06-02] VITALS (8 sets, daily range): BP systolic 96–149; BP diastolic 56–76; PULSE 67–92; RESP 18–20; TEMP 97.6–98.3; O2SAT 94–98
[2024-06-02] MEDS: MELATONIN 3 MG TAB PO PRN (22:17)
[2024-06-03] VITALS (8 sets, daily range): BP systolic 116–144; BP diastolic 57–87; PULSE 72–92; RESP 18–20; TEMP 98–98.4; O2SAT 95–98
[2024-06-03 09:39] LABS: BASOPHILS # (AUTO) 0.1 (0.0-0.1); BASOPHILS % 0.9 % (0.0-1.0); EOSINOPHILS # (AUTO) 0.5 (0.0-0.4); EOSINOPHILS % 5.5 % (0.0-6.0); HEMATOCRIT 34.1 % (34.2-44.1); HEMOGLOBIN 9.8 g/dL (12.0-16.0); LYMPHOCYTES # (AUTO) 1.2 (1.0-3.2); LYMPHOCYTES % 13.4 % (18.0-39.1); MEAN CORPUSCULAR HEMOGLOBIN 26.1 pg (28-32); MEAN CORPUSCULAR HGB CONC 28.7 g/dL (31-35); MEAN CORPUSCULAR VOLUME 90.9 fL (81-99); MONOCYTES # (AUTO) 0.6 (0.2-0.8); MONOCYTES % 6.2 % (4.4-11.3); NEUTROPHILS # (AUTO) 6.1 (2.1-6.9); NEUTROPHILS % 69.1 % (38.7-80.0); PLATELET COUNT 257 x10e3/uL (140-360); RED BLOOD COUNT 3.75 x10e6/uL (3.6-5.1); RED CELL DISTRIBUTION WIDTH 14.7 % (11.7-14.4); WHITE BLOOD COUNT 8.86 x10e3/uL (4.8-10.8)
[2024-06-03 09:52] LABS: CREATININE, SERUM 0.81 mg/dL (0.57-1.11)
[2024-06-04] VITALS: BP 114/72; PULSE 68; RESP 20; TEMP 98.2; O2SAT 98
[2024-06-04 04:00] VITALS: BP 126/74; PULSE 77; RESP 18; TEMP 98.9; O2SAT 100
[2024-06-04 07:35] VITALS: PULSE 84; RESP 18; O2SAT 95
[2024-06-04 08:17] VITALS: BP 126/74; PULSE 84; RESP 18; TEMP 98.9; O2SAT 95
[2024-06-04 08:22] VITALS: BP 116/71; PULSE 79; RESP 20; TEMP 98; O2SAT 100
[2024-06-04] MEDS: MAGNESIUM SULFATE 2GM/50ML 50 ML IV ONE (08:23)
[2024-06-04 08:32] LABS: BASOPHILS # (AUTO) 0.1 (0.0-0.1); BASOPHILS % 0.9 % (0.0-1.0); EOSINOPHILS # (AUTO) 0.4 (0.0-0.4); EOSINOPHILS % 3.8 % (0.0-6.0); HEMATOCRIT 33.2 % (34.2-44.1); HEMOGLOBIN 10.1 g/dL (12.0-16.0); LYMPHOCYTES # (AUTO) 1.2 (1.0-3.2); LYMPHOCYTES % 13.5 % (18.0-39.1); MEAN CORPUSCULAR HEMOGLOBIN 26.4 pg (28-32); MEAN CORPUSCULAR HGB CONC 30.4 g/dL (31-35); MEAN CORPUSCULAR VOLUME 86.9 fL (81-99); MONOCYTES # (AUTO) 0.8 (0.2-0.8); MONOCYTES % 8.6 % (4.4-11.3); NEUTROPHILS # (AUTO) 6.5 (2.1-6.9); PLATELET COUNT 278 x10e3/uL (140-360); RED BLOOD COUNT 3.82 x10e6/uL (3.6-5.1); RED CELL DISTRIBUTION WIDTH 14.8 % (11.7-14.4); WHITE BLOOD COUNT 9.11 x10e3/uL (4.8-10.8)
[2024-06-04 12:10] VITALS: BP 130/77; PULSE 91; RESP 20; TEMP 99; O2SAT 100
== END 2024-06-04 14:11 | disposition home health service (06) | DRG 871 ==
LOC: ER 17:16 → ERHOLD 18:44 → MED/SURG2 21:29
PROVIDERS: ADMIT Internal Medicine; ATTEND Internal Medicine
DX: A41.9 Sepsis, unspecified organism (principal); G92.8 Other toxic encephalopathy; N17.9 Acute kidney failure, unspecified; E87.1 Hypo-osmolality and hyponatremia; M62.82 Rhabdomyolysis; F03.A2 Unspecified dementia, mild, with psychotic disturbance; F05 Delirium due to known physiological condition; E87.21 Acute metabolic acidosis; N39.0 Urinary tract infection, site not specified; G93.49 Other encephalopathy; E87.5 Hyperkalemia; I10 Essential (primary) hypertension; R53.81 Other malaise; R31.29 Other microscopic hematuria; N13.9 Obstructive and reflux uropathy, unspecified; N31.9 Neuromuscular dysfunction of bladder, unspecified; R33.9 Retention of urine, unspecified; J02.8 Acute pharyngitis due to other specified organisms; B95.61 Methicillin susceptible Staphylococcus aureus infection as the cause of diseases classified elsewhere; D64.9 Anemia, unspecified; M32.9 Systemic lupus erythematosus, unspecified; M79.7 Fibromyalgia; M06.9 Rheumatoid arthritis, unspecified; E87.8 Other disorders of electrolyte and fluid balance, not elsewhere classified; M19.91 Primary osteoarthritis, unspecified site; G89.29 Other chronic pain; E66.9 Obesity, unspecified; Z68.32 Body mass index [BMI] 32.0-32.9, adult; Z87.891 Personal history of nicotine dependence; Z98.84 Bariatric surgery status; Z86.73 Personal history of transient ischemic attack (TIA), and cerebral infarction without residual deficits; Z79.891 Long term (current) use of opiate analgesic; Z79.899 Other long term (current) drug therapy; Z79.82 Long term (current) use of aspirin
CPT/HCPCS: 36415; 36600; 70450; 71046; 76770; 80048; 80053; 80307; 80320; 81001; 82140; 82550; 82570; 82805; 82948; 83518; 83735; 83880; 84100; 84156; 84484; 84550; 85025; 86021; 86039; 86160; 86225; 87070; 87186; 93005; 93306; 94799; 95819; 99252; 99284; J0360; J1650; J1940; J2310; J2405; J2543; J3475; J7030; J7050; J7799

== ENCOUNTER → 2024-07-01 | Day surgery (SDC) | payer MEDICARE ==
[2024-06-30 10:50] LABS: BASOPHILS # (AUTO) 0.1 (0.0-0.1); BASOPHILS % 1.2 % (0.0-1.0); EOSINOPHILS # (AUTO) 0.5 (0.0-0.4); EOSINOPHILS % 9.9 % (0.0-6.0); HEMOGLOBIN 11.3 g/dL (12.0-16.0); LYMPHOCYTES # (AUTO) 1.4 (1.0-3.2); LYMPHOCYTES % 27.5 % (18.0-39.1); MEAN CORPUSCULAR HGB CONC 30.5 g/dL (31-35); MEAN CORPUSCULAR VOLUME 85.3 fL (81-99); MONOCYTES # (AUTO) 0.7 (0.2-0.8); MONOCYTES % 13.4 % (4.4-11.3); NEUTROPHILS # (AUTO) 2.4 (2.1-6.9); NEUTROPHILS % 47.8 % (38.7-80.0); PLATELET COUNT 259 x10e3/uL (140-360); RED BLOOD COUNT 4.34 x10e6/uL (3.6-5.1); RED CELL DISTRIBUTION WIDTH 14.6 % (11.7-14.4); WHITE BLOOD COUNT 4.94 x10e3/uL (4.8-10.8)
[2024-06-30 11:22] LABS: ANION GAP 12.3 mmol/L (8-16); CREATININE, SERUM 0.82 mg/dL (0.57-1.11); POTASSIUM 4.3 mmol/L (3.5-5.1)
[~2024-07-01] MED LIST changes: +ACETAMINOPHEN 1000 MG/100 ML 100 ML IV ONE; +FENTANYL CITRATE/PF 100MCG/2 ML INJ ONE; +LIDOCAINE HCL 2% LOCAL INJ 5 ML SDV VIAL INJ ONE; +MACROBID 100 M100 MG PO; +PROPOFOL IV EMULSION 10 MG/ML 20 ML VIAL ONE; +SEVOFLURANE INHAL SOLN 250 ML PEN BTL ONE
[2024-07-01] MEDS: LACTATED RINGER'S 1,000 ML ONE (12:53)
[2024-07-01] MEDS: GENTAMICIN 80MG/NS 100 ML 200 ML IV ONE (12:55)
[2024-07-01 14:35] VITALS: TEMP 98.5
[2024-07-01] MEDS: PHENAZOPYRIDINE HCL 100 MG TAB ONE (14:55)
[2024-07-01 15:20] VITALS: BP 147/83; PULSE 70; RESP 16; O2SAT 96
== END | disposition home or self-care (01) ==
LOC: OR 09:56
PROVIDERS: ATTEND Urology
DX: N30.10 Interstitial cystitis (chronic) without hematuria (principal); N32.89 Other specified disorders of bladder; N32.81 Overactive bladder; N39.46 Mixed incontinence; R35.1 Nocturia; N81.89 Other female genital prolapse; N81.10 Cystocele, unspecified; N81.6 Rectocele; N36.41 Hypermobility of urethra; N95.2 Postmenopausal atrophic vaginitis; G47.33 Obstructive sleep apnea (adult) (pediatric); D64.9 Anemia, unspecified; I10 Essential (primary) hypertension; J45.909 Unspecified asthma, uncomplicated; K21.9 Gastro-esophageal reflux disease without esophagitis; F03.90 Unspecified dementia, unspecified severity, without behavioral disturbance, psychotic disturbance, mood disturbance, and anxiety; F41.9 Anxiety disorder, unspecified; F32.A Depression, unspecified; Z88.6 Allergy status to analgesic agent; Z88.1 Allergy status to other antibiotic agents; Z01.812 Encounter for preprocedural laboratory examination; Z79.82 Long term (current) use of aspirin; Z79.899 Other long term (current) drug therapy; Z68.32 Body mass index [BMI] 32.0-32.9, adult; Z86.73 Personal history of transient ischemic attack (TIA), and cerebral infarction without residual deficits; Z87.891 Personal history of nicotine dependence
CPT/HCPCS: 36415; 52260; 74420; 80048; 85025; 87086; J0131; J1580; J2003; J2704; J3010; J7121